=== PATIENT | male | born 1985 | race Caucasian/White ===

== ENCOUNTER 2021-07-29 06:34 | Emergency (ER) | payer SELFPAY ==
[2021-07-29 08:19] LABS: Basophils % (Auto) 0.5 % (0.0-1.8); Eosinophils # (Auto) 0.1 K/mm3 (0.0-0.4); Eosinophils % (Auto) 2.3 % (0.0-4.3); Hematocrit 46.9 % (35.5-45.6); Hemoglobin 15.5 gm/dl (11.8-15.2); Lymphocytes # (Auto) 1.6 K/mm3 (1.2-5.4); Lymphocytes % (Auto) 30.4 % (13.4-35.0); Mean Corpuscular HGB Conc 33 % (32-34); Mean Corpuscular Volume 90 fl (84-94); Monocytes # (Auto) 0.3 K/mm3 (0.0-0.8); Monocytes % (Auto) 6.3 % (0.0-7.3); Platelet Count 271 K/mm3 (140-440); Red Blood Count 5.24 M/mm3 (3.65-5.03); Red Cell Distribution Width 14.1 % (13.2-15.2)
--- NOTE | 2021-07-29 08:32 | XRay Report ---
CHEST 2 VIEWS INDICATION: Chest Pain. COMPARISON: none FINDINGS: Support devices: None. Heart: Within normal limits. Lungs/pleura: No acute air space or interstitial disease. No pneumothorax. Additional findings: None. IMPRESSION: No acute findings. Signer Name: Urbano Tirado Jr, MD Signed: 07/29/2021 8:28 AM Workstation Name: [id number]
[2021-07-29 08:47] LABS: Alanine Aminotransferase 27 units/L (7-56); Albumin 4.4 g/dL (3.9-5); BUN/Creatinine Ratio 13; Blood Urea Nitrogen 12 mg/dL (9-20); Calcium 8.7 mg/dL (8.4-10.2); Hemolysis Index 17
--- NOTE | 2021-07-29 08:47 | Emergency Department Report ---
ED Chest Pain HPI - General Chief Complaint: Chest Pain Stated Complaint: CHEST PAIN PUI?: No Time Seen by Provider: 07/29/21 07:40 Source: patient Mode of arrival: Ambulatory Limitations: No Limitations - History of Present Illness Initial Comments: 36 yo comes to ER with left sided cp for 1.5 h this AM. It scared him so he com es to ER. No associated symptoms. pain worse with movement. no n/v/d. no fever or chills. no sob. Pt is ambulatory and non ill appearing on exam. MD Complaint: chest pain -: Sudden, hour(s) Onset: during rest Pain Location: left chest Severity: moderate Severity scale (0 -10): 6 Quality: sharp Consistency: intermittent Improves With: rest Worsens With: movement re: denies: nausea, vomting, diaphoresis, dyspnea, sense of impending doom Other Symptoms: denies: cough, fever, syncope, rash, acid taste in mouth, leg swelling, palpitations, burping Treatments Prior to Arrival: none Aspirin use within the Past 7 Days: (0) No Heart Score - HEART Score History: Slightly suspicious EKG: Normal Age: < 45 Risk factors: No known risk factors Troponin: < normal limit HEART Score: 0 - EKG Read Time Time EKG Completed: 06:00 EKG Read Time: 06:00 - Critical Actions Critical Actions: 0-3 pts:0.9-1.7%risk of adverse cardiac event.Candidate for discharge ED Review of Systems ROS: Stated complaint: CHEST PAIN Other details as noted in HPI Comment: All other systems reviewed and negative ED Past Medical Hx - Past Medical History Previous Medical History?: No Additional medical history: known cesario-pt runs 3 x per week - Surgical History Past Surgical History?: No - Family History Family history: no significant - Social History Smoking Status: Never Smoker Substance Use Type: None ED Physical Exam - General Limitations: No Limitations General appearance: alert, in no apparent distress - Head Head exam: Present: atraumatic, normocephalic - Eye Eye exam: Present: normal appearance - ENT ENT exam: Present: mucous membranes moist - Neck Neck exam: Present: normal inspection - Respiratory Respiratory exam: Present: normal lung sounds bilaterally. Absent: respiratory distress - Cardiovascular Cardiovascular Exam: Present: regular rate, normal rhythm. Absent: systolic murmur, diastolic murmur, rubs, gallop - GI/Abdominal GI/Abdominal exam: Present: soft, normal bowel sounds - Rectal Rectal exam: Present: deferred - Extremities Exam Extremities exam: Present: normal inspection - Back Exam Back exam: Present: normal inspection - Neurological Exam Neurological exam: Present: alert, oriented X3 - Psychiatric Psychiatric exam: Present: normal affect, normal mood - Skin Skin exam: Present: warm, dry, intact, normal color. Absent: rash ED Course Vital Signs 07/29/21 07/29/21 06:40 08:58 Temperature 97.9 F 98.6 F Pulse Rate 51 L 50 L Respiratory 16 16 Rate Blood Pressure 131/84 138/79 [Right] O2 Sat by Pulse 99 98 Oximetry NADIA score - Nadia Score Age > 65: (0) No Aspirin use within the Past 7 Days: (0) No 3 or more CAD Risk Factors: (0) No 2 or more Angina events in past 24 hrs: (0) No Known CAD with more than 50% Stenosis: (0) No Elevated Cardiac Markers: (0) No ST Deviation Greater than 0.5mm: (0) No NADIA Score: 0 ED Medical Decision Making - Lab Data Result diagrams: 07/29/21 08:05 07/29/21 08:05 - EKG Data -: EKG Interpreted by Ok EKG shows normal: sinus rhythm Rate: normal - EKG Data When compared to previous EKG there are: no significant change Interpretation: no acute changes - Radiology Data Radiology results: report reviewed, image reviewed [facility] - Medical Decision Making Vital Signs 07/29/21 07/29/21 06:40 08:58 Temperature 97.9 F 98.6 F Pulse Rate 51 L 50 L Respiratory 16 16 Rate Blood Pressure 131/84 138/79 [Right] O2 Sat by Pulse 99 98 Oximetry Labs 07/29/21 07/29/21 08:05 08:05 WBC 5.3 RBC 5.24 H Hgb 15.5 H Hct 46.9 H MCV 90 MCH 30 MCHC 33 RDW 14.1 Plt Count 271 Lymph % (Auto) 30.4 [place] % (Auto) 6.3 Eos % (Auto) 2.3 Baso % (Auto) 0.5 Lymph # (Auto) 1.6 [place] # (Auto) 0.3 Eos # (Auto) 0.1 Baso # (Auto) 0.0 Seg Neutrophils % 60.5 Seg Neutrophils # 3.2 Sodium 139 Potassium 4.0 Chloride 103.5 Carbon Dioxide 23 Anion Gap 17 BUN 12 Creatinine 0.9 Estimated GFR > 60 BUN/Creatinine Ratio 13 Glucose 103 H Calcium 8.7 Total Bilirubin 0.30 AST 21 ALT 27 Alkaline Phosphatase 108 Troponin T < 0.010 Total Protein 7.9 Albumin 4.4 Albumin/Globulin Ratio 1.3 labs noted ekg noted xray noted dc home with dc plan of care including follow up with pcp. he verbalizes understanding of plan of care. - Differential Diagnosis muscle pain/acs Critical care attestation.: If time is entered above; I have spent that time in minutes in the direct care of this critically ill patient, excluding procedure time. ED Disposition Clinical Impression: Atypical chest pain Disposition: 01 HOME / SELF CARE / HOMELESS Is pt being admited?: No Does the pt Need Aspirin: No Condition: Stable Instructions: Nonspecific Chest Pain, Adult Additional Instructions: ALL TESTS NORMAL TODAY FOLLOW UP WITH PCP IF PERSISTS REFERRAL BELOW Referrals: DIANELYS SANTOS MD [Staff Physician] - 3-5 Days Time of Disposition: 08:49
[2021-07-29 09:00] VITALS: BP 138/79
--- NOTE | 2021-07-31 13:04 | Electrocardiograph Report ---
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
== END 2021-07-29 08:57 | disposition home or self-care (01) ==
LOC: ED 06:34
DX: R07.89 Other chest pain (principal)
CPT/HCPCS: 36415; 71046; 80053; 84484; 85025; 93005; 93010; 99283